=== PATIENT | female | born 1945 | race Caucasian/White ===

== ENCOUNTER 2017-01-14 09:30 | Inpatient (IN) | payer BC, OTHER ==
[2017-01-14] MEDS ORDERED: morphINE PF 5 MG/10 ML INJ IT ONE (10:17)
[2017-01-14] MEDS ORDERED: morphINE SR 15 MG TAB PO ONE (10:17)
[2017-01-14] MEDS ORDERED: ceFAZolin 2 GM/DEXTROSE 100 ML IV ONE (10:17)
[2017-01-14] MEDS ORDERED: GABAPENTIN 300 MG CAP PO ONE (10:17)
[2017-01-14] MEDS ORDERED: LR 1,000 ML IV ONE (10:27)
--- NOTE | 2017-01-14 10:27 | PDHPUP ---
History & Physical Update H&P update statement: This history and physical update is based on an assessment of the patient which was completed after admission or registration (within 24 hours), but prior to the surgery/procedure. H&P update: H&P reviewed & patient examined, no change in patient's condition since H&P completed (Consents signed and site marked. All questions answered.)
[2017-01-14] MEDS ORDERED: THROMBIN (BOVINE) 20,000 UNIT VIAL TP ONE (11:06)
[2017-01-14] MEDS ORDERED: BUPIVACAINE 0.25% 30 ML SDV ONE (11:06)
[2017-01-14] MEDS ORDERED: BACITRACIN 50,000 UNITS/10 ML SYR IRR ONE (11:07)
[2017-01-14] MEDS ORDERED: CITRATE DEXTROSE SOLN 500 ML BAG ONE (11:07)
[2017-01-14] MEDS ORDERED: fentaNYL 100 MCG/2 ML INJ IVP PRN (11:48)
[2017-01-14] MEDS ORDERED: HYDROmorphONE/DILAUDID 1 MG/ML INJ IVP PRN ×2 (11:48→16:42)
[2017-01-14] MEDS ORDERED: ALBUTEROL 3 ML DEYVIAL IH PRN (11:48)
[2017-01-14] MEDS ORDERED: NALOXONE HCL 0.4 MG/ML INJ IVP PRN (11:48)
[2017-01-14] MEDS ORDERED: ONDANSETRON 4 MG/2 ML VIAL IVP PRN (11:48)
--- NOTE | 2017-01-14 11:48 | PDANEPAE ---
ANE History of Present Illness L4/5/S1 TLIF, L4/5 Lum Bragg Fusion W/Stealth ANE Past Medical History - Cardiovascular History Hx Hypertension: Yes Hx Arrhythmias: No Hx Chest Pain: No Hx Coronary Artery / Peripheral Vascular Disease: No Hx CHF / Valvular Disease: No Hx Palpitations: No Cardiovascular History Comment: pcp monitors bp - Pulmonary History Hx COPD: No Hx Asthma/Reactive Airway Disease: Yes Hx Recent Upper Respiratory Infection: No Hx Oxygen in Use at Home: No Hx Sleep Apnea: Yes Sleep Apnea Screening Result - Last Documented: Positive Pulmonary History Comment: abena positive- instructed pt to bring cpap to hospital. occ asthma- instructed pt to bring inhaler to hospital - Neurologic History Hx Cerebrovascular Accident: No Hx Seizures: No Hx Dementia: No Neurologic History Comment: hx of cervical fusion. numbness and tingling to legs currently - Endocrine History Hx Diabetes: No - Renal History Hx Renal Disorders: Yes Renal History Comment: leaking d/t age - Liver History Hx Hepatic Disorders: No - Neurological & Psychiatric Hx Hx Neurological and Psychiatric Disorders: No - Cancer History Hx Cancer: No - Congenital Disorder History Hx Congenital Disorders: No - GI History Hx Gastrointestinal Disorders: Yes Gastrointestinal History Comment: reflux - Other Health History Other Health History: wears glasses - Chronic Pain History Chronic Pain: Yes (bilateral knee and back pain) - Surgical History Prior Surgeries: tonsillectomy 1954. appy 1970. x2 1978 and 1984. carpal tunnel 1991, 2005. cervical fusion c5 2003. paula 2009. rtc 2011 and 2014. hand surgery 2013 ANE Review of Systems Review of Systems: - Exercise capacity METS (RN): 3 METS ANE Patient History - Allergies Allergies/Adverse Reactions: acetaminophen [From Percocet] Allergy (Verified 12/22/16 10:18) HALLUCINATIONS oxycodone [From Percocet] Allergy (Verified 12/22/16 10:18) HALLUCINATIONS - Home Medications Home Medications: Albuterol [Proventil Inhaler HFA (*)] 1 - 2 puffs IH DAILY PRN 12/16/16 [Last Taken Unknown] Furosemide [Lasix 20 MG (*)] 20 mg PO DAILY 12/16/16 [Last Taken Unknown] Lansoprazole [Prevacid] 30 mg PO DAILY 12/16/16 [Last Taken Unknown] Losartan Potassium [Cozaar 50 mg (*)] 50 mg PO DAILY 12/16/16 [Last Taken Unknown] Multivitamins [Multivitamin (*)] 1 each PO DAILY 12/16/16 [Last Taken Unknown] Naproxen Sodium [Aleve 220 MG (*)] 220 mg PO BID PRN 12/16/16 [Last Taken Unknown] Potassium Cl [Klor-Con 20 meq (*)] 20 meq PO DAILY 12/16/16 [Last Taken Unknown] - NPO status NPO Since - Liquids (Date): 01/14/17 NPO Since - Liquids (Time): 05:45 NPO Since - Solids (Date): 01/13/17 NPO Since - Solids (Time): 19:00 - Smoking Hx Smoking Status: Former smoker - Family Anes Hx Family Hx Anesthesia Complications: none ANE Labs/Vital Signs - Vital Signs Blood Pressure: 160/85 Heart Rate: 80 Respiratory Rate: 16 O2 Sat (%): 93 Height: 157.48 cm Weight: 108.862 kg ANE Physical Exam - Airway Neck exam: decreased ROM Mallampati Score: Class 2 Mouth exam: normal dental/mouth exam - Pulmonary Pulmonary: clear to auscultation - Cardiovascular Cardiovascular: regular rate and rhythym - ASA Status ASA Status: II ANE Anesthesia Plan Anesthesia Plan: general endotracheal anesthesia
[2017-01-14] MEDS ORDERED: MIDAZOLAM 2 MG/2 ML VIAL IVP ONE (11:49)
[2017-01-14] MEDS ORDERED: HYDROmorphONE/DILAUDID 2 MG/ML INJ ONE (12:38)
[2017-01-14] MEDS ORDERED: PROPOFOL/EMULSION 500 MG/50 ML BOTTLE IV ONE ×3 (12:38)
[2017-01-14] MEDS ORDERED: SUCCINYLCHOLINE CHLORIDE*ANESTHESIA ONLY*200 MG/10 ML SYR IVP ONE (12:40)
[2017-01-14] MEDS ORDERED: REMIFENTANIL HCL 1 MG VIAL ONE ×4 (12:44→15:51)
[2017-01-14] MEDS ORDERED: epHEDrine SULFATE 10 MG/ML SYR ONE ×2 (13:05→13:14)
[2017-01-14] MEDS ORDERED: VASOPRESSIN 20 UNIT/ML VIAL ONE (13:21)
[2017-01-14] MEDS ORDERED: PROPOFOL 200 MG/20 ML VIAL ONE (15:53)
[2017-01-14] MEDS ORDERED: DEXAMETHASONE 4 MG/ML VIAL ONE (16:20)
[2017-01-14] MEDS ORDERED: RANITIDINE 50 MG/2 ML VIAL ONE (16:20)
[2017-01-14] MEDS ORDERED: ONDANSETRON 4 MG/2 ML VIAL ONE ×2 (16:20→16:54)
[2017-01-14] MEDS ORDERED: ALBUTEROL 200 PUFFS/18 GM MDI IH PRN (16:40)
[2017-01-14] MEDS ORDERED: MAGNESIUM HYDROXIDE 30 ML UDCUP PO PRN (16:42)
[2017-01-14] MEDS ORDERED: BISACODYL 10 MG SUPP PR PRN (16:42)
[2017-01-14] MEDS ORDERED: POLYETHYLENE GLYCOL 3350 17 GM PKT PO PRN (16:42)
[2017-01-14] MEDS ORDERED: LACTULOSE 20 GM/30 ML UDCUP PO PRN (16:42)
[2017-01-14] MEDS ORDERED: diphenhydrAMINE 25 MG CAP PO PRN (16:42)
[2017-01-14] MEDS ORDERED: NS W/ 20 KCl/L 1,000 ML IV SCH (16:45)
--- NOTE | 2017-01-14 16:48 | POSTANESTH ---
Post Anesthetic Evaluation Cardiovascular Status: Normal, Stable Respiratory Status: Normal, Stable Level of Consciousness/Mental Status: Can Participate in Eval, Alert and Oriented Pain Control: Adequate, Prn Tx Ordered Nausea/Vomiting Control: Adequate, Prn Tx Ordered Complications Possibly Related to Anesthesia: None Noted
--- NOTE | 2017-01-14 16:56 | POSTOPPROG ---
Post Op Note Date of Operation: 01/14/17 Surgeon: Tang Dupont Creative Resource Manager: Adali Benjamin PA-C Anesthesiologist: Xavier Anesthesia: GET(General Endotracheal) Pre-op Diagnosis: lumbar stenosis, radiculopathy Post-op Diagnosis: same Indication: leg pain Procedure: L45 laminectomy, L4-S1 TLIF, L4-S1 posterior fusion Findings: Please see dictation Inf/Abcess present in the surg proc area at time of surgery?: No Depth: Organ Space EBL: 50-100 Complications: none Drains: Louis Jean ([id number]) Specimen(s): none EDEN Addendum - Addendum .: S: Pt in PACU, denies pain O: AAOX3 NAD VSS MAEx4 Motor 5/5 BUE/BLE +LT Incision cdi [id number] Reilly A: 71 yo F s/p L45 laminectomy, L4/5/S1 TLIF and posterior fusion P: PT/OT Pain management DC reilly in AM Stool softeners Brace when OOB TEDs, SCDs, lovenox POD#1 Post op xrays pending duramorph given D/w Dr Dupont Call NS with any issues
--- NOTE | 2017-01-14 17:38 | GOP ---
[f rep st] OPERATIVE REPORT DATE OF OPERATION: 01/14/2017 SURGEON: Tang Dupont MD DESIGN TEACHER: MECHE Lau COMPLICATIONS: None. ANESTHESIA: General. PREOPERATIVE DIAGNOSIS: 1. L4-L5 spondylolisthesis with severe spinal stenosis. 2. L5-S1 spondylosis. 3. Right lower extremity radiculopathy. 4. Treatment refractory to nonoperative intervention. POSTOPERATIVE DIAGNOSIS: 1. L4-L5 spondylolisthesis with severe spinal stenosis. 2. L5-S1 spondylosis. 3. Right lower extremity radiculopathy. 4. Treatment refractory to nonoperative intervention. PROCEDURE PERFORMED: 1. Posterior arthrodesis with approach to L4/L5/S1. 2. Posterolateral fusion with bilateral pedicle screw placement into L4/L5/S1 from [employer] 4.75 system. 3. Decompressive laminectomy with bilateral medial facetectomies, L4-L5. 4. Right-sided L5-S1 hemilaminotomy with mesial facetectomy, foraminotomy, and nerve decompression. 5. Right-sided L4-L5 transforaminal lumbar interbody fusion with a 7 x 23 mm titanium PEEK elevate cage filled with morselized autograft and allograft. 6. Right-sided L5-S1 transforaminal lumbar interbody fusion with an 8 x 22 mm titanium coated PEEK cage filled with morselized autograft and allograft. 7. Posterolateral fusion on the left between L4 and S1. 8. Use of intraoperative 3D Stealth navigation. 9. Use of intraoperative fluoroscopy, less than 1 hour physician time. 10. Use of neuromonitoring. 11. Use of operative microscope. 12. Injection of preservative-free intrathecal narcotics. FINDINGS: per imaging SPECIMENS: None. ESTIMATED BLOOD LOSS: 200 mL. INDICATIONS: The patient is a 71-year-old woman who presented to my office with severe low back pain and right lower extremity radiculopathy. She had evidence of severe spinal stenosis L4-5 with a grade 1 spondylolisthesis. She also had lateral recess foraminal stenosis on the right L4-5/L5-S1. After failing nonoperative interventions and after discussion of risks, benefits, and treatment alternatives, we decided to proceed forth with surgery as described above. DESCRIPTION OF PROCEDURE: Patient was brought to the operating theater and underwent general endotracheal anesthesia without complications. She had Venodyne's, FRANK hose, and appropriate lines placed by Anesthesia. She was flipped prone onto the Louis table. All bony processes inspected and padded. The lower lumbar region was prepped and draped in the usual sterile surgical fashion. A time-out was completed per protocol, and the patient received antibiotics within 1 hour of incision. Using lateral fluoroscopy and a spinal needle, we picked our entry point at the L4 through S1 levels. This was marked in the midline. The incision was infiltrated with Marcaine with epinephrine. The incision was taken down with the scalpel blade, and then using the monopolar, the incision was taken down the midline through the lumbodorsal fascia and subperiosteal dissection carried to the transverse processes of L4, L5, and S1 bilaterally. Care was taken to preserve the bilateral L3-L4 facet joints. Deep retractors placed to maintain our exposure. We attached the 3D Stealth navigation clamp to the spinous process of L5 and completed a 3D Stealth navigation spin. Using 3D Stealth navigation, we placed the airline pilot holes for the bilateral pedicle screws into L4, L5, and S1. All holes were manually palpated with no evidence of any cortical breaches. We then tapped and placed 6.5 x 50 mm screws bilaterally at L4 and L5, and 6.5 x 40 mm screws bilaterally in S1 from the [employer] 4.75 system. Another 3D Stealth navigation spin demonstrated good placement of the hardware. At this point, the microscope was brought into the field to assist with microscopic dissection and to maintain illumination and magnification. Using a combination of the bur tip on the drill bit, Kerrison punches, and Leksell rongeur, we completed decompressive laminectomy with bilateral medial facetectomies, L4-L5. We resected the pars on the right side between L4-5 and also completed right-sided L5-S1 hemilaminotomy with mesial facetectomy and resection of the pars. We then moved up to L4-5, where we distracted the interspace and completed a right-sided L4-5 diskectomy. We prepared the cartilaginous endplates and measured interbody space. We then placed a 7 x 23 mm titanium PEEK elevate cage filled with morselized autograft and allograft anteriorly toward the midline. We packed additional morcellized autograft into the disk space for the interbody fusion. We let down distraction and moved down to L5-S1 to the right side where we completed right-sided L5-S1 diskectomy. We prepared the cartilaginous endplates and measured the interbody space. We then placed an 8 x 22 mm titanium coated PEEK cage filled with morselized autograft and allograft anteriorly toward the midline. We packed additional morcellized autograft into the disk space for the interbody fusion. We let down distraction. We decorticated the bone on the left side between L4 and S1. We placed morselized autograft and allograft for the posterolateral fusion on the left side. We injected preservative-free intrathecal narcotics. We placed 2 lordotic rods into the heads of the screws between L4 and S1 and secured them down with cap screws, which were tightened per manufacture's settings. A drain was left in the subfascial space and the wound then closed in multiple layers using Vicryl sutures for the deep layers and Dermabond for the skin. The patient's wounds were dressed sterilely. She was flipped supine onto the transfer cart, where she was awakened, extubated, and taken to the recovery room in stable condition. There were no complications and no noted changes on neuromonitoring throughout the procedure. /[id number]/MODL MTDD
[2017-01-14] MEDS: ONDANSETRON DISINTEGRATING 4 MG TAB PO PRN (20:17)
[2017-01-14] MEDS: POLYETHYLENE GLYCOL 3350 17 GM PKT PO SCH (22:31)
[2017-01-14] MEDS: FAMOTIDINE 20 MG TAB PO SCH (22:32)
[2017-01-14] MEDS: SENNOSIDES/DOCUSATE SODIUM TAB PO SCH (22:32)
[2017-01-14] MEDS: ACETAMINOPHEN 500 MG TAB PO SCH (22:33)
[2017-01-14] MEDS: ceFAZolin 2 GM/DEXTROSE 100 ML IV SCH (22:33)
[2017-01-14] MEDS: ONDANSETRON 4 MG/2 ML VIAL IVP PRN (23:28)
[2017-01-15] MEDS: HYDROCODONE/APAP 5/325 TAB PO PRN ×4 (00:53→21:52)
[2017-01-15 05:23] LABS: ANION GAP 8 mEq/L (8-16); CALCIUM 10.2 mg/dL (8.5-10.4); CARBON DIOXIDE 26 mEq/l (22-31); CHLORIDE 106 mEq/L (97-110); CREATININE 0.8 mg/dL (0.6-1.0); GLOMERULAR FILTRATION RATE > 60; GLUCOSE 124 mg/dL (70-100); POTASSIUM 5.1 mEq/L (3.5-5.2); SODIUM 140 mEq/L (134-144)
[2017-01-15] MEDS: ACETAMINOPHEN 500 MG TAB PO SCH ×3 (05:42→23:16)
[2017-01-15] MEDS: ONDANSETRON DISINTEGRATING 4 MG TAB PO PRN (05:42)
[2017-01-15] MEDS: ceFAZolin 2 GM/DEXTROSE 100 ML IV SCH (05:43)
--- NOTE | 2017-01-15 08:11 | NEUSURGPN ---
Assessment/Plan: A: 71 yo F s/p L45 laminectomy, L4/5/S1 TLIF and posterior fusion - POD#1 P: PT/OT Pain management DC reilly Stool softeners Brace when OOB Continue EVGENY drain TEDs, SCDs, lovenox POD#1 Post op xrays pending D/w Dr Dupont Call NS with any issues Subjective: Pt resting in bed, slept well overnight. Objective: AAOx3 NAD VSS MAEx4 Motor 5/5 BLE JPx1 with serosanguineous drainage in bulb Urinary Catheter in Place: Yes Urinary Catheter Indication: Surgical Requirement (to be removed today) - Physician Discussed Patient with : [facility] Physical Exam - Vitals, I&O, Labs I and O 01/14/17 01/15/17 01/16/17 05:59 05:59 05:59 Intake Total 2410 Output Total 1030 Balance 1380 Weight 108.862 kg Intake: Oral (ml) 10 IV Intake (ml) 2400 Output: Urine (ml) 550 Catheter 550 Estimated Blood Loss (ml) 200 EVGENY Drain Output (ml) 280 Back 280 Other: Intake Quantity Yes Sufficient Number of Emesis 1 Occurrences Vital Signs Temp Pulse Resp BP Pulse Ox 36.4 C 72 16 111/53 L 97 01/15/17 07:56 01/15/17 07:56 01/15/17 07:56 01/15/17 07:56 01/15/17 07:56 Laboratory Results 01/15/17 04:25 ICD10 Worksheet Patient Problems: Problems Problem Status Onset Lumbar stenosis Acute - ICD10 Problem Qualifiers (1) Lumbar stenosis Qualifiers: Neurogenic claudication status: unspecified Qualified Code(s): M48.061 - Spinal stenosis, lumbar region without neurogenic claudication
[2017-01-15] MEDS: FAMOTIDINE 20 MG TAB PO SCH ×2 (10:08→21:52)
[2017-01-15] MEDS: POTASSIUM CL 20 MEQ TAB PO SCH (10:08)
[2017-01-15] MEDS: ONDANSETRON 4 MG/2 ML VIAL IVP PRN (10:08)
[2017-01-15] MEDS: MULTIVITAMINS 1 EACH TAB PO SCH (10:09)
[2017-01-15] MEDS: FUROSEMIDE 20 MG TAB PO SCH (10:10)
[2017-01-15] MEDS: PANTOPRAZOLE SODIUM 40 MG TAB PO SCH (10:10)
[2017-01-15] MEDS: LOSARTAN POTASSIUM 50 MG TAB PO SCH (10:10)
[2017-01-15] MEDS: SENNOSIDES/DOCUSATE SODIUM TAB PO SCH ×2 (10:16→22:01)
[2017-01-15] MEDS: POLYETHYLENE GLYCOL 3350 17 GM PKT PO SCH ×3 (10:16→22:01)
--- NOTE | 2017-01-15 10:23 | ASMTCMCOM ---
CM Note CM Note Notes: Chart reviewed, met with pt to review discharge POC, she is s/p spinal fusion. Patient reports she recently moved in with her daughter. Awaiting PT/OT notes to determine if needs exist. CM to follow, Date Signed: 01/15/2017 10:22 AM Electronically Signed By:Teresa Gerard RN
[2017-01-15] MEDS ORDERED: ENOXAPARIN 40 MG/0.4 ML SYR SC SCH (16:00)
[2017-01-15] MEDS: ENOXAPARIN 40 MG/0.4 ML SYR SC SCH (18:27)
[2017-01-16] MEDS: HYDROCODONE/APAP 5/325 TAB PO PRN ×3 (04:04→21:46)
[2017-01-16] MEDS: METHOCARBAMOL 750 MG TAB PO PRN ×2 (04:04→21:46)
[2017-01-16] MEDS: ACETAMINOPHEN 500 MG TAB PO SCH ×3 (05:49→22:06)
[2017-01-16] MEDS: ENOXAPARIN 40 MG/0.4 ML SYR SC SCH ×2 (05:50→18:38)
--- NOTE | 2017-01-16 07:26 | SOAPPROG ---
SOAP Progress Note Assessment/Plan: Assessment: 71 yo F POD #1 L4-S1 TLIF Plan: neuro: stable and doing well overall :) PT/OT post op x-rays look good scd/renu/lovenox for dvt prophylaxis EVGENY keep for now dc iv please call with neuro changes likely dc home tomorrow 01/16/17 07:22 01/16/17 07:26 Subjective: + back pain, no leg pain, no weakness. Objective: Vital Signs Temp Pulse Resp BP Pulse Ox 36.6 C 78 16 119/56 L 99 01/16/17 03:47 01/16/17 03:47 01/16/17 03:47 01/16/17 03:47 01/16/17 03:47 Laboratory Results 01/15/17 04:25 01/15/17 01/16/17 01/17/17 05:59 05:59 05:59 Intake Total 2410 600 Output Total 1030 990 Balance 1380 -390 AAOx4, +FC PERRL, EOMI, no facial droop 5/5 + light touch C/D/I ICD10 Worksheet Patient Problems: Problems Problem Status Onset Lumbar stenosis Acute
[2017-01-16] MEDS: POTASSIUM CL 20 MEQ TAB PO SCH (07:46)
[2017-01-16] MEDS: MULTIVITAMINS 1 EACH TAB PO SCH (07:47)
[2017-01-16] MEDS: FAMOTIDINE 20 MG TAB PO SCH ×2 (07:47→21:46)
[2017-01-16] MEDS: LOSARTAN POTASSIUM 50 MG TAB PO SCH (07:47)
[2017-01-16] MEDS: SENNOSIDES/DOCUSATE SODIUM TAB PO SCH ×2 (07:48→21:42)
[2017-01-16] MEDS: FUROSEMIDE 20 MG TAB PO SCH (07:48)
[2017-01-16] MEDS: POLYETHYLENE GLYCOL 3350 17 GM PKT PO SCH ×3 (07:48→21:42)
[2017-01-16] MEDS: PANTOPRAZOLE SODIUM 40 MG TAB PO SCH (07:49)
[2017-01-16 11:10] VITALS: RESP 16
--- NOTE | 2017-01-16 16:36 | ASMTCMCOM ---
CM Note CM Note Notes: SWer met w/ Pt. in room to choose a homecare agency. Pt. lives in [place]. Confirmed address and phone number. Pt. will need home PT and OT at discharge. Possible need for RN if drain not removed at d/c. Sent referrals through [facility] today. Pt. does not have a preferred agency. [facility] unable to take Pt. due to insurance. CM to follow for accepting homecare agency. CM to follow for homecare d/c. Date Signed: 01/16/2017 04:36 PM Electronically Signed By:Aiyana Soliman LCSW
[2017-01-17] MEDS: ENOXAPARIN 40 MG/0.4 ML SYR SC SCH (05:24)
[2017-01-17] MEDS: HYDROCODONE/APAP 5/325 TAB PO PRN ×2 (05:24→14:20)
[2017-01-17] MEDS: ACETAMINOPHEN 500 MG TAB PO SCH (05:47)
[2017-01-17 07:48] VITALS: BP 92/74; PULSE 78; TEMP 98.3; O2SAT 91
[2017-01-17] MEDS: PANTOPRAZOLE SODIUM 40 MG TAB PO SCH (07:50)
[2017-01-17] MEDS: METHOCARBAMOL 750 MG TAB PO PRN ×2 (07:50→14:20)
[2017-01-17] MEDS: POTASSIUM CL 20 MEQ TAB PO SCH (07:50)
[2017-01-17] MEDS: FAMOTIDINE 20 MG TAB PO SCH (07:51)
[2017-01-17] MEDS: MULTIVITAMINS 1 EACH TAB PO SCH (07:51)
[2017-01-17] MEDS: LOSARTAN POTASSIUM 50 MG TAB PO SCH (07:51)
[2017-01-17] MEDS: FUROSEMIDE 20 MG TAB PO SCH (07:52)
[2017-01-17] MEDS: SENNOSIDES/DOCUSATE SODIUM TAB PO SCH (07:52)
[2017-01-17] MEDS: POLYETHYLENE GLYCOL 3350 17 GM PKT PO SCH (07:52)
--- NOTE | 2017-01-17 09:17 | SOAPPROG ---
SOAP Progress Note Assessment/Plan: Assessment: 71 yo F POD #3 L4-S1 TLIF Plan: neuro: stable and doing well overall :) PT/OT post op x-rays look good scd/renu/lovenox for dvt prophylaxis dc emperatriz dc iv please call with neuro changes likely dc home today 01/16/17 07:22 01/16/17 07:26 01/17/17 09:16 Subjective: back pain improving, no leg pain, no weakness. Objective: Vital Signs Temp Pulse Resp BP Pulse Ox 36.8 C 78 16 92/74 L 91 L 01/17/17 07:47 01/17/17 07:47 01/17/17 07:47 01/17/17 07:47 01/17/17 07:47 Laboratory Results 01/15/17 04:25 01/16/17 01/17/17 01/18/17 05:59 05:59 05:59 Intake Total 600 1800 200 Output Total 990 1090 300 Balance -390 710 -100 AAOx4, +FC PERRL, EOMI, no facial droop 5/5 + light touch C/D/I ICD10 Worksheet Patient Problems: Problems Problem Status Onset Lumbar stenosis Acute
--- NOTE | 2017-01-17 15:54 | ASMTCMCOM ---
CM Note CM Note Notes: Patient chart reviewed, She is dcd to home without acceptance to home health care at this time. Per her RN she has no strong opinion on needs for services. One referral still pending from [facility].Spoke with daughter Lisa . She and her mom live together. I explained situation of difficulty getting authorizations over weekend. She states understanding. Mother has difficult insurance. Advised to contact PCP for office visit and C referral as well. Per PT she would benefit from home PT. I gave her CM number if she has further needs or questions. Date Signed: 01/17/2017 03:53 PM Electronically Signed By:Teresa Gerard RN
== END 2017-01-17 14:26 | disposition home or self-care (01) | DRG 455 ==
LOC: F3N 09:47
PROVIDERS: ADMIT Neurological Surgery; ATTEND Neurological Surgery
DX: M48.061 Spinal stenosis, lumbar region without neurogenic claudication (principal); M43.16 Spondylolisthesis, lumbar region; M54.16 Radiculopathy, lumbar region; M21.371 Foot drop, right foot; Z87.891 Personal history of nicotine dependence
CPT/HCPCS: 97116-GP; 97161-GP; 97165-GO; 97530-GO; 97530-GP; 97535-GO; C1713; G8978-GP-CJ; G8979-GP-CI; G8980-GP-CI; G8987-GO-CI; G8987-GO-CK; G8988-GO-CI; G8989-GO-CI; J0171; J0330; J0690; J1100; J1170; J1650; J2250; J2274; J2405; J2704; J2780; J7060